=== PATIENT | male | born 1960 | race Two or more races ===

== ENCOUNTER 2017-11-25 17:51 | Emergency (ER) | payer BC ==
[2017-11-25 18:46] VITALS: BP 150/94
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
--- NOTE | 2017-11-26 10:59 | EKG REPORT ---
SEVERITY:- ABNORMAL ECG - SINUS RHYTHM PROBABLE INFERIOR INFARCT, AGE INDETERMINATE : Confirmed by: Meghna Mora 26-Nov-2017 10:59:07
== END 2017-11-25 19:03 | disposition home or self-care (01) ==
LOC: ER 17:51
DX: T75.4XXA Electrocution, initial encounter (principal); T23.191A Burn of first degree of multiple sites of right wrist and hand, initial encounter; W86.1XXA Exposure to industrial wiring, appliances and electrical machinery, initial encounter; Y93.89 Activity, other specified; S01.01XA Laceration without foreign body of scalp, initial encounter; W19.XXXA Unspecified fall, initial encounter; F17.200 Nicotine dependence, unspecified, uncomplicated
CPT/HCPCS: 93005; 93010; 99285